=== PATIENT | female | born 1950 | race Caucasian/White ===

== ENCOUNTER 2016-07-27 10:46 | Day surgery (SDC) | payer MEDICARE, MEDICAID ==
[~2016-07-27] VITALS: Ht 172.7 cm; Wt 69.0 kg
[~2016-07-27 10:46] MED LIST: BUME1TAB4 PO; FUR20 PO; LEVO100T6 PO; LISI-571 PO; LORA10CA PO; SIMV80TA4 PO; WARF5TAB7 PO
[2016-07-27 11:52] VITALS: BP 116/64; PULSE 71; RESP 16; O2SAT 96
[2016-07-27] MEDS ORDERED: Lactated Ringer's 1,000 ML IV SCH (12:27)
--- NOTE | 2016-07-27 12:27 | PCM.HPANE ---
Patient Data Date of Service: Jul 27, 2016 ([id number]) Surgeon Admitting Provider: Attending Provider:Raul Salas MD Primary Care Physician:Zayda Calix Other Provider:Sonu Hou Anesthesia Reason for Visit Diarrhea, Melena Ht/WT & BMI Height (Feet): 5 Height (Inches): 8 Weight (Kilograms): 69 Body Mass Index 23.00 Allergies Coded Allergies: No Known Drug Allergies (Verified Allergy, Unknown, 07/25/16) Past Anesthesia History Anesthesia History: Denies:: Abnormal Airway, Anesthesia Reactions, Difficult Intubation, Fam Anesthesia Reaction, Fam Malignant Hypertherm, Malignant Hyperthermia Diabetes History Hx Diabetes?: No MRSA MRSA: No Medications Blood Thinner: Coumadin Last Dose Blood Thinner: Jul 20, 2016 Home Meds Incl Beta Arley: No Reported Medications Loratadine (Claritin)10 Mg [id number] Mg PO DAILY Ref 0 07/25/16 Bumetanide 1 Mg Tablet1 Mg PO DAILY PRN elevated bp Ref 0 10/31/15 Furosemide 20 Mg Tab20 Mg PO DAILY 30 Days Ref 0 10/31/15 Warfarin Sodium 5 Mg Tablet7.5 Mg PO -- 30 Days Ref 0 10/31/15 Simvastatin 80 Mg [id number] Mg PO DAILY #90 10/31/15 Levothyroxine 100 Mcg [id number] Mcg PO DAILY #90 10/31/15 Lisinopril 5 Mg Tablet5 Mg PO DAILY #90 10/31/15 Warfarin Sodium 5 Mg Tablet5 Mg [id number] 10/31/15 History History of ENT Problems?: No HEENT History: Denies:: Abnormal Airway Difficult Intubation Dysphagia Hearing Problem Hx of Heart Problems?: No Cardiovascular History: Positive for:: Hypertension Denies:: AICD Atrial Fibrillation Chest Pain Pacemaker Valvular Heart Disease Hx of Respiratory Problem?: No Respiratory History: Positive for:: Cough Denies:: Asthma COPD Hemoptysis Pneumonia Tuberculosis Neurological History: Positive for:: CVA Hx of GI Problems?: Yes Gastrointestinal History: Positive for:: Gall Bladder Disease Rectal Bleeding Denies:: Cirrhosis Diverticulitis Gastroesphageal Reflux Hiatal Hernia Liver Disease Hx of Problems?: No Hx Musculoskeletal Problems?: No Musculoskeletal History: Denies:: Fibromyalgia Joint Replacement Hx of Psycho/Social Problems?: No Psycho Social History: Denies:: Anxiety Hx Depression Hx Surgeries?: Yes (VEIN STRIPPING, HYSTERECTOMY, GALLBLADDER, TONSILLECTOMY) Hx Any Other Health Problems?: Yes Hx Diabetes: No Hx Alcohol Use: Yes (DAILY) Smoking Status: Current Every Day Smoker Stop/Bang Treated for Sleep Apnea?: No Do You Have a CPAP Machine?: No S-Snoring: Do You Snore Loudly: No T-Tired: feel tired, fatigued: No O-Obsered: Observed not breath: No P-Blood Pressure: treated: Yes B- Body Mass Index > 35 kg/m2: No A- Age over 50: Yes N- Neck Large Circumference: No G- Gender Male: No ALEAH Total Score: 2 ALEAH Risk Assessment: Low Risk, <3 Yes Risk Assessment Category Category 1A: Patient has history of documented sleep apnea, and HAS NOT received any narcotic, sedative or anesthesia administration during this stay. Category 1B: Patient has history of documented sleep apnea, and HAS received any narcotic , sedative or anesthesia administration during this stay Category 2: Patient has SUSPECTED Obstructive Sleep Apnea, and HAS received any narcotic , sedative or anesthesia administration during this stay. Category 3: Patient has SUSPECTED Obstructive Sleep Apnea and HAS NOT received narcotic, sedative or anesthesia administration during this stay. Category 4: Outpatient in Procedural Areas with known sleep apnea or who screen positive for High Risk via the STOP/BANG questionnaire. Exam Exam Vital Signs Vital Signs Date Time Temp Pulse Resp B/P Pulse Ox O2 Delivery O2 Flow Rate FiO2 07/27/16 11:52 36.4 71 16 116/64 96 Room Air General Appearance: Alert, Oriented X3, Cooperative HEENT/AIRWAY: MP 2 (LOOSE TOOTH) Lungs: Clear to Auscultation Heart: Exam Unremarkable Plan Impression Patient chart reviewed, patient interviewed and anesthestic plan with risks, benefits, and alternatives discussed, and informed consent obtained. ASA Physical Status: ASA2 Mod Systemic Disease Anesthetic Plan: GA Bene/Risks/Altern/Consents: Yes HP Complete Prior to Induction: Yes Corwin Duarte MD Jul 27, 2016 12:27
[2016-07-27] MEDS ORDERED: MetoCLOpramide 5 mg/mL 2 mL Inj IVPUSH PRN (12:30)
[2016-07-27] MEDS ORDERED: Ondansetron 2 mg/mL 2 mL Inj IVPUSH PRN (12:30)
[2016-07-27] MEDS: Lactated Ringer's 1,000 ML IV ONE ×2 (12:39→12:42)
--- NOTE | 2016-07-27 13:16 | PCM.ENDCOL ---
Colonoscopy Date of Service: Jul 27, 2016 Physician Raul Salas MD Pre Procedure Diagnosis: Screening diarrhea Post Procedure Dx & Findings: Polyp hemorrhoids diverticuli Procedure Colonoscopy PROCEDURE IN DETAIL: Prep adequate After unremarkable rectal examination the Olympus video colonoscope was inserted patient's anal canal and was advanced to cecum. Landmarks were identified including the ileocecal valve and appendiceal orifice. Scope further because the terminal ileum. We advanced about 8-10 cm. Terminal ileum showed normal villous structures without ulcer or mass erosion. Scope was withdrawn systematically. Visualized colonic mucosa showed healthy shiny mucosa with normal healthy-appearing vasculature. In the cecum, there was a 2 cm flat polyp. Normal saline injection for left. This was removed completely using hot snare. 3 resolution clips applied to completely seal the defect. There were 3 polyps which were 4-5 mm in size which were all resected completely using cold snare. Random biopsies were obtained from the cecum to the rectum. In the sigmoid colon there were several small to medium sized diverticuli. In the rectum retroflexion was done which showed hemorrhoids. Anal canal was inspected carefully on the way out and hemorrhoids noted. Impression Polyps 4 status post complete removal Diverticuli Hemorrhoids Normal terminal ileum Recommendation Repeat colonoscopy 2 years Diverticula diet EGD was not performed because she has a very loose tooth. Reschedule EGD after the tooth is pulled. Follow-up with Dr. Maya in the GI clinic Presedation Assessment Risks and Benefits Informed consent was obtained from the patient after all risks and benefits including but not limited to drug reaction, infection, pain, bleeding, perforation, as well as alternatives were discussed. Patient monitoring Continuous pulse oximetry, cardiac monitoring, blood pressure monitoring, IV access, and oxygen at 2L per nasal cannula. Complications There were no periprocedural complications identified. Post Procedure Plan Post Procedure Recommendations 1. Restrict activities today. 2. Resume normal activities in the morning. 3. Resume medications. 4. Patient informed of normal post procedure side effects as bloating, drowsiness, blood streaking in the stool. 5. average risk CRCS. If colon polyps come back as: -Hyperplastic- can repeat colonoscopy in 10 years -Tubular adenoma- repeat colonoscopy in 5 years -Tubulovillous/villous adenoma- repeat colonoscopy in 3 years -If any dysplasia- return to clinic as soon as possible 6. Please don't hesitate to call me with any questions. Raul Salas MD Jul 27, 2016 13:16
--- NOTE | 2016-07-27 13:17 | PCM.ANEP1 ---
Post Anesthesia Phase 1 PACU Phase 1 Assessment Date of Service: Jul 27, 2016 ([id number]) Vital Signs 64, 16, 36.4, 94%, 106/57 Vital Signs Date Time Temp Pulse Resp B/P Pulse Ox O2 Delivery O2 Flow Rate FiO2 07/27/16 11:52 36.4 71 16 116/64 96 Room Air Anesthetic Administered: GA Level of Alertness: Awake, talking MAGALLANES's with Equal Strength: Yes Pain: No Nausea or Vomiting: No Oxygen Delivery: Room Air Lungs: Clear to Auscultation Dermatome Level: Full Sensation Summary EASY SEDATION Corwin Duarte MD Jul 27, 2016 13:17
--- NOTE | 2016-07-27 13:17 | PCM.ANEP2 ---
Post Anesthesia Evaluation ASA/CMS Post Anesthesia VS in Patient's Normal Range?: Yes Resp Stable; Airway Patent?: Yes CV Function & Hydration Stable: Yes Mental Status Recovered?: Yes Pain control Satisfactory?: Yes N/V Control Satisfactory?: Yes Corwin Duarte MD Jul 27, 2016 13:17
[2016-07-27 13:20] VITALS: BP 106/57; PULSE 65; RESP 17; O2SAT 99
[2016-07-27 13:30] VITALS: BP 132/57; PULSE 67; RESP 16; O2SAT 100
--- NOTE | 2016-07-31 10:43 | PATH ---
SURGICAL PATHOLOGY Attending Physician:Raul Salas M.D. CASE STATUS: Signed Out PATIENT NAME: GLORIA JIMENEZ PID: [id number] : 1950 DATE COLLECTED:07/27/2016 00:00 SPECIMEN: 1: Colon, Biopsy 2: Colon, Biopsy CLINICAL HISTORY: DIARRHEA 1). RIGHT COLON POLYP 2). RANDOM COLON BIOPSY FINAL DIAGNOSIS: 1.RIGHT COLON POLYP: TUBULAR ADENOMA INVOLVING MULTIPLE BIOPSY FRAGMENTS. 2.RANDOM COLON BIOPSIES: FRAGMENTS OF NORMAL-APPEARING COLON MUCOSA. Negative for significant architectural distortion. Negative for significant inflammation, dysplasia and malignancy. ICD10 code D12.2 GROSS DESCRIPTION: The specimen is received in two formalin filled containers labeled with the patient's name. 1). The specimen is sublabeled "right colon polyps" and consists of multiple portions of tissue and debris which aggregate to 1.8 x 1.0 x 0.2 CM. The specimen is filtered and entirely submitted in cassette 1A. 2). The specimen is sublabeled "random colon" and consists of multiple portions of tissue which aggregate to 0.4 x 0.4 x 0.3 CM. The specimen is entirely submitted in cassette 2A. 07/28/2016 [facility] MICRO DESCRIPTION: See diagnosis. ICD-9 CODES: CPT CODES: 1: 33922 2: 20643 Electronically Signed Out Da Osorio MD [facility] Pathology [facility] [address], [place] [address] Technical component performed at [facility], [facility] [address], [place], [address]
== END 2016-07-27 23:59 | disposition home or self-care (01) ==
LOC: END 10:46
PROVIDERS: ATTEND Internal Medicine
DX: Z12.11 Encounter for screening for malignant neoplasm of colon (principal); D12.2 Benign neoplasm of ascending colon; K57.30 Diverticulosis of large intestine without perforation or abscess without bleeding; K64.8 Other hemorrhoids; E78.5 Hyperlipidemia, unspecified; I10 Essential (primary) hypertension; E03.9 Hypothyroidism, unspecified; I82.402 Acute embolism and thrombosis of unspecified deep veins of left lower extremity; I26.99 Other pulmonary embolism without acute cor pulmonale; J30.9 Allergic rhinitis, unspecified; F17.210 Nicotine dependence, cigarettes, uncomplicated; Z79.01 Long term (current) use of anticoagulants
CPT/HCPCS: 45380; 45381; 45385; J7120